=== PATIENT | male | born 1975 | race Asian ===

== ENCOUNTER 2017-12-05 00:23 | Emergency (ER) | payer MEDICAID ==
[~2017-12-05] VITALS: Ht 175.3 cm; Wt 81.0 kg
[2017-12-05 02:35] LABS: CLARITY URINE CLEAR (CLEAR); COLOR URINE DARK YELLOW (YELLOW); KETONES URINE TRACE (NEGATIVE); LEUKOCYTE ESTERASE URINE NEGATIVE (NEGATIVE); NITRITE URINE NEGATIVE (NEGATIVE); OCCULT BLOOD URINE NEGATIVE (NEGATIVE); PROTEIN URINE 1+ (NEGATIVE); SPECIFIC GRAVITY URINE 1.028 (1.005-1.030)
[2017-12-05] MEDS ORDERED: HYDROCODONE/ACETAMINOPHEN 10/325MG TABLET PO ONE (03:15)
[2017-12-05] MEDS ORDERED: QUETIAPINE FUMARATE 100MG TABLET PO SCH (03:15)
[2017-12-05 03:48] VITALS: BP 129/72
== END 2017-12-05 03:49 | disposition home or self-care (01) ==
LOC: ER 00:23
DX: S22.41XA Multiple fractures of ribs, right side, initial encounter for closed fracture (principal); V00.131A Fall from skateboard, initial encounter; Y93.51 Activity, roller skating (inline) and skateboarding; Y92.89 Other specified places as the place of occurrence of the external cause
CPT/HCPCS: 74176; 81003; 99285

== ENCOUNTER 2017-12-05 05:19 | Emergency (ER) | payer MEDICAID ==
[~2017-12-05] VITALS: Ht 172.7 cm; Wt 82.0 kg
[2017-12-05] MEDS ORDERED: ACETAMINOPHEN 500MG TABLET PO ONE (06:45)
[2017-12-05 07:12] LABS: BASOPHILS % 0.7 % (0.0-2.0); EOSINOPHILS % 1.9 % (0.0-5.0); HEMATOCRIT. 38.2 % (42.0-52.0); LYMPHOCYTES % 32.6 % (20.0-50.0); MEAN CORPUSCULAR HEMOGLOBIN 27.8 pg (28.0-32.0); MEAN PLATELET VOLUME 7.9 fl (7.4-10.4); MONOCYTES % 6.9 % (2.0-8.0); NEUTROPHILS % 57.9 % (40.0-76.0); PLATELET 362 x1000/uL (130-400); RED BLOOD CELL COUNT 4.66 mill/uL (4.7-6.1); RED CELL DISTRIBUTION WIDTH 16.7 % (11.6-14.6)
[2017-12-05 07:28] LABS: CHLORIDE 108 mEq/L (98-107)
[2017-12-05 07:31] LABS: ETHANOL BLOOD < 10 mg/dL
[2017-12-05 07:53] LABS: CLARITY URINE CLEAR (CLEAR); COLOR URINE DARK YELLOW (YELLOW); KETONES URINE NEGATIVE (NEGATIVE); LEUKOCYTE ESTERASE URINE NEGATIVE (NEGATIVE); NITRITE URINE NEGATIVE (NEGATIVE); OCCULT BLOOD URINE NEGATIVE (NEGATIVE); PROTEIN URINE NEGATIVE (NEGATIVE); SPECIFIC GRAVITY URINE 1.024 (1.005-1.030)
[2017-12-05 08:13] LABS: *AMPHETAMINES SCREEN URINE NEGATIVE (NEGATIVE); *BARBITURATES SCREEN URINE NEGATIVE (NEGATIVE); *BENZODIAZEPINES SCREEN URINE NEGATIVE (NEGATIVE); *COCAINE SCREEN URINE NEGATIVE (NEGATIVE)
[2017-12-05 08:14] LABS: CANNABINOID URINE SCREEN PRESUMTIVE POSITIVE (NEGATIVE); METHADONE URINE SCREEN NEGATIVE (NEGATIVE); OPIATES URINE SCREEN PRESUMTIVE POSITIVE (NEGATIVE); PHENCYCLIDINE URINE SCREEN NEGATIVE (NEGATIVE)
[2017-12-05 10:04] VITALS: BP 127/71
== END 2017-12-05 11:05 | disposition home or self-care (01) ==
LOC: ER 05:49
DX: F20.89 Other schizophrenia (principal); R45.851 Suicidal ideations; R45.850 Homicidal ideations; R07.81 Pleurodynia
CPT/HCPCS: 36415; 71101; 80053; 80305; 81003; 85025; 99285; G0482